=== PATIENT | female | born 1965 | race Caucasian/White ===

== ENCOUNTER → 2020-03-27 | Outpatient (CLI) | payer BC ==
[~2020-03-27] MED LIST: IOPAMIDOL 370 MG/ML 200 ML INFUS..BTL INJ ONE; PROAIR HFA INH8.5 GM; SODIUM CHLORIDE 0.9% 100 ML ONE; SODIUM CHLORIDE 0.9% 50ML 0 ML ONE; VYVANSE50 MG; ZIAC 5-6.25 MG1 EACH; [UNRECOGNIZED DRUG - OTHER] PO
== END ==
LOC: CT 10:00
PROVIDERS: ATTEND Internal Medicine Interventional Cardiology
DX: R07.9 Chest pain, unspecified (principal); I77.810 Thoracic aortic ectasia
CPT/HCPCS: 71275; 74175; J7050; Q9967